=== PATIENT | female | born 1975 | race Caucasian/White ===

== ENCOUNTER 2016-08-05 12:14 | Emergency (ER) | payer BC, OTHER ==
[~2016-08-05] VITALS: Ht 157.5 cm; Wt 90.5 kg
[~2016-08-05 12:14] MED LIST: ALBUAER3 INH; ALPR.5 PO; LEVA500T PO; PRED20 PO; RISP4TAB41 PO; TRAM50TA PO
[2016-08-05 12:19] VITALS: BP 134/76; PULSE 116; RESP 17; TEMP 98; O2SAT 90
[2016-08-05] MEDS ORDERED: PRED50 PO (13:42)
[2016-08-05] MEDS ORDERED: BENZ100 PO (13:42)
[2016-08-05] MEDS ORDERED: ALBUAER3 INH (13:42)
[2016-08-05] MEDS ORDERED: LEVA500T PO (13:42)
--- NOTE | 2016-08-05 13:43 | PD ---
HPI Chief Complaint: Cold / Flu Symptoms Time Seen by Provider: 13:36 Travel History International Travel<30 days: No Contact w/Intl Traveler<30days: No Traveled to known affect area: No History of Present Illness HPI 40 yr old female with asthma, bipolar disorder, depressioon and tobaccoism here with c/o coughing and shortness of breath for 4 days. Patient says her entire family is sick and she is not getting better. She had PNA back in Nov and states her symptoms resolved. She never had f/u CXR as instructed to do. Today she is having increased bouts of coughing and has shortness of breath on exertion. She has a nebulizer machine at home, but has not been using it. She has not smoked for the past several days. She does admit to fever and chills, but states she does not have them at this moment. She voices concern that she may be . Denies any cp, nausea, vomiting, or abdominal pain. PFSH Past Medical History Asthma: Yes Bipolar Disorder: Yes Anxiety: Yes Diminished Hearing: No Reproductive: Yes (RIGHT OVARIAN CYST) Respiratory: Yes (SEWLYN ALLERGBEULAH ASTHMA) Immunizations Current: Yes ?: Not : 1 Para: 1 Social History Alcohol Use: Yes (FEW TIMES PER MONTH) Tobacco Use: Yes (1 PPD) Substance Use: No Allergies-Medications (Allergen,Severity, Reaction): Coded Allergies: Contrast Media (Verified Allergy, Unknown, ANAPHYLAXIS, 08/05/16) Reported Meds & Prescriptions Reported Meds & Active Scripts Active Proair Hfa 8.5 GM Inh (Albuterol Sulfate) 90 Mcg/Act Aer 2 Puff INH Q6H PRN 108 mcg/actuation Tessalon Perles (Benzonatate) 100 Mg Cap 100 Mg PO TID PRN Prednisone 50 Mg Tab 50 Mg PO DAILY Levaquin (Levofloxacin) 500 Mg Tab 500 Mg PO DAILY Prednisone 20 Mg Tab 40 Mg PO DAILY 4 Days Levaquin (Levofloxacin) 500 Mg Tab 500 Mg PO DAILY 7 Days Reported Tramadol (Tramadol HCl) 50 Mg Tab 50 Mg PO DAILY PRN Risperdal (Risperidone) 4 Mg Tab 6 Mg PO DAILY Proair Hfa 8.5 GM Inh (Albuterol Sulfate) 90 Mcg/Act Aer 1 Puff INH Q4H PRN 108 mcg/actuation Xanax (Alprazolam) 0.5 Mg Tab 0.5 Mg PO BID PRN Review of Systems General / Constitutional: Positive: Fever, Chills Eyes: No: Visual changes HENT: No: Headaches Cardiovascular: No: Chest Pain or Discomfort Respiratory: Positive: Cough, Shortness of Breath, Wheezing Gastrointestinal: No: Abdominal Pain Genitourinary: No: Dysuria Musculoskeletal: No: Pain Skin: No Rash Neurologic: No: Weakness Psychiatric: No: Depression Endocrine: No: Polydipsia Hematologic/Lymphatic: No: Easy Bruising Physical Exam Narrative GENERAL: AAO x 3, no acute distress, Well-nourished, well-developed patient. In hospital bed comfortable. SKIN: Warm and dry. No visible rashes or bruising. HEAD: Normocephalic and atraumatic. EYES: No scleral icterus. No injection or drainage. EOM intact, PERRLA ENT: No nasal drainage noted. Mucous membranes pink. Airway patent. NO posterior pharynx erythema. No exudates. NECK: Supple, trachea midline. No JVD. NO lymphadenopathy. CARDIOVASCULAR: Regular rate and rhythm without murmurs, gallops, or rubs. RESPIRATORY: Breath sounds equal bilaterally. No accessory muscle use. Slightly wheezes scattered, no rhonchi or rales. GASTROINTESTINAL: Abdomen soft, non-tender, nondistended. EXTREMITIES: No cyanosis or edema. BACK: Nontender without obvious deformity. No CVA tenderness. PSYCH: AAO x 3, normal affect. Data Data Last Documented VS Vital Signs Date Time Temp Pulse Resp B/P Pulse Ox O2 Delivery O2 Flow Rate FiO2 08/05/16 15:11 94 18 98 08/05/16 12:19 98.0 134/76 Orders Chest, Pa & Lat (08/05/16 ) Ed Urine Pregnancytest Poc (08/05/16 13:40) Albuterol-Ipratropium Neb (Duoneb Neb) (08/05/16 14:45) Prednisone (Deltasone) (08/05/16 14:45) MDM Medical Decision Making Medical Screen Exam Complete: Yes Emergency Medical Condition: Yes Medical Record Reviewed: Yes Interpretation(s) improvement from last cxr no consolidation seen Differential Diagnosis PNA, bronchitis, acute sinusitis Narrative Course 40 yr old female with asthma, bipolar disorder, depressioon and tobaccoism here with c/o coughing and shortness of breath for 4 days. Patient says her entire family is sick and she is not getting better. She had PNA back in Apr and states her symptoms resolved. She never had f/u CXR as instructed to do. Today she is having increased bouts of coughing and has shortness of breath on exertion. She has a nebulizer machine at home, but has not been using it. She has not smoked for the past several days. She does admit to fever and chills, but states she does not have them at this moment. She voices concern that she may be . Denies any cp, nausea, vomiting, or abdominal pain. Patient seen and examined. She does have some wheezing and diminished breath sounds. With hx of PNA, repeat CXR ordered. CXR no acute disease. Upon walking patient developed some SOB and was given Duoneb. She requested a dose of steroids, which was administered. Take medications as prescribed. Levaquin 500 daily for 7 days. Prednisone 50 mg daily x 5 days. Tessalon perles as directed. Proair inhaler as directed. Diagnosis Primary Impression: Acute bronchitis Qualified Code: J20.9 - Acute bronchitis, unspecified organism Patient Instructions: Acute Bronchitis (ED), General Instructions Additional Instructions: Take medications as prescribed. Levaquin 500 daily for 7 days. Prednisone 50 mg daily x 5 days. Tessalon perles as directed. Proair inhaler as directed. Med/Other Pt SpecificInfo: Prescription(s) given Scripts Albuterol 8.5 GM Inh (Proair Hfa 8.5 GM Inh)90 Mcg/Act Aer2 Puff INH Q6H PRN ( SHORTNESS OF BREATH) #1 INHALER Ref 0 108 mcg/actuation Prov:Ruth Thomas 08/05/16 Benzonatate (Tessalon Perles)100 Mg [id number] Mg PO TID PRN (COUGH) #30 CAP Ref 0 Prov:Ruth Thomas 08/05/16 Prednisone 50 Mg Tab50 Mg PO DAILY #5 TAB Ref 0 Prov:Ruth Thomas 08/05/16 Levofloxacin (Levaquin)500 Mg [id number] Mg PO DAILY #7 TAB Ref 0 Prov:Ruth Thomas 08/05/16 Disposition: 01 DISCHARGE HOME Condition: Stable Ruth Thomas Aug 05, 2016 13:43
[2016-08-05] MEDS ORDERED: predniSONE 20 MG TAB PO ONE (14:45)
[2016-08-05] MEDS ORDERED: RESP: ALBUTEROL 2.5 MG/IPRATROPIUM 0.5 MG NEB (SCH) INH ONE (14:45)
--- NOTE | 2016-08-05 15:33 | RADRPT ---
EXAM DATE/TIME: 08/05/2016 14:12 [facility] COMPARISON: CHEST PA & LAT, May 22, 2016, 15:04. INDICATIONS : Congestion,shortness of breath,cough,chest pain. MEDICAL HISTORY : hx. of bronchitis SURGICAL HISTORY : None. ENCOUNTER: Initial ACUITY: 4 - 6 days PAIN SCORE: 0/10 LOCATION: Bilateral chest middle FINDINGS: PA and lateral views of the chest demonstrate the lungs to be symmetrically aerated without evidence of mass, infiltrate or effusion. The cardiomediastinal contours are unremarkable. Osseous structure s are intact. CONCLUSION: No acute disease. Tello Theodore MD FACR on August 05, 2016 at 14:31 Board Certified Radiologist. This report was verified electronically.
== END 2016-08-05 15:21 | disposition home or self-care (01) ==
LOC: NEPB 12:14
DX: J20.9 Acute bronchitis, unspecified (principal); J45.909 Unspecified asthma, uncomplicated; R05 Cough; F17.210 Nicotine dependence, cigarettes, uncomplicated
CPT/HCPCS: 71020; 84703; 94664; 99284; J7512

== ENCOUNTER 2017-01-12 14:14 | Emergency (ER) | payer SELFPAY ==
[~2017-01-12 14:14] MED LIST changes: +BENZ100 PO; +PRED50 PO
[2017-01-12 14:15] VITALS: BP 114/69; TEMP 98.2; O2SAT 97
--- NOTE | 2017-01-12 14:22 | PD ---
Physical Exam Time Seen by Provider: 14:21 Narrative 41 y/o female with dizziness/lightheadness, worse with orthostatic changes, for one week. Vital signs reviewed. Seen at triage desk. Awaiting bed placement. Data Data Last Documented VS Vital Signs Date Time Temp Pulse Resp B/P Pulse Ox O2 Delivery O2 Flow Rate FiO2 01/12/17 14:15 98.2 104 20 114/69 97 Room Air [facility] Medical Record Reviewed: Yes Supervised Visit with MARKIE: Richie Wood Jan 12, 2017 14:22
--- NOTE | 2017-01-12 15:19 | PD ---
HPI Chief Complaint: Dizziness Time Seen by Provider: 15:19 Travel History International Travel<30 days: No Contact w/Intl Traveler<30days: No Traveled to known affect area: No [facility] Past Medical History Asthma: Yes Bipolar Disorder: Yes Anxiety: Yes Diminished Hearing: No Reproductive: Yes (RIGHT OVARIAN CYST) Respiratory: Yes (SESONAL ALLERGIE ASTHMA) Immunizations Current: Yes : 1 Para: 1 Social History Alcohol Use: Yes (FEW TIMES PER MONTH) Tobacco Use: Yes (1 PPD) Substance Use: No Allergies-Medications (Allergen,Severity, Reaction): Coded Allergies: Contrast Media (Verified Allergy, Unknown, ANAPHYLAXIS, 08/05/16) Reported Meds & Prescriptions Reported Meds & Active Scripts Active Meclizine (Meclizine HCl) 25 Mg Tab 25 Mg PO TID PRN Proair Hfa 8.5 GM Inh (Albuterol Sulfate) 90 Mcg/Act Aer 2 Puff INH Q6H PRN 108 mcg/actuation Tessalon Perles (Benzonatate) 100 Mg Cap 100 Mg PO TID PRN Prednisone 50 Mg Tab 50 Mg PO DAILY Levaquin (Levofloxacin) 500 Mg Tab 500 Mg PO DAILY Prednisone 20 Mg Tab 40 Mg PO DAILY 4 Days Levaquin (Levofloxacin) 500 Mg Tab 500 Mg PO DAILY 7 Days Reported Tramadol (Tramadol HCl) 50 Mg Tab 50 Mg PO DAILY PRN Risperdal (Risperidone) 4 Mg Tab 6 Mg PO DAILY Proair Hfa 8.5 GM Inh (Albuterol Sulfate) 90 Mcg/Act Aer 1 Puff INH Q4H PRN 108 mcg/actuation Xanax (Alprazolam) 0.5 Mg Tab 0.5 Mg PO BID PRN Data Data Last Documented VS Vital Signs Date Time Temp Pulse Resp B/P Pulse Ox O2 Delivery O2 Flow Rate FiO2 01/12/17 15:46 90 110/67 95 117/74 103 118/74 01/12/17 15:24 98.2 20 97 Room Air Orders Electrocardiogram (01/12/17 14:58) Ed Urine Pregnancytest Poc (01/12/17 14:58) Meclizine (Antivert) (01/12/17 16:00) MDM Scripts Meclizine 25 Mg Tab25 Mg PO TID PRN (VERTIGO) #15 TAB Ref 0 Prov:Ladarius Woody MD 01/12/17 Ladarius Woody MD Jan 12, 2017 15:19
[2017-01-12 15:24] VITALS: BP 114/69; PULSE 104; RESP 20; TEMP 98.2; O2SAT 97
[2017-01-12 15:46] VITALS: BP_SYST 110; BP_SYST 117; BP_SYST 118; BP_DIAS 67; BP_DIAS 74
[2017-01-12] MEDS ORDERED: MECLIZINE HCL 25 MG TAB PO ONE (16:00)
[2017-01-12] MEDS ORDERED: MECL-62 PO (16:31)
--- NOTE | 2017-01-12 16:31 | PD ---
HPI Chief Complaint: Dizziness Time Seen by Provider: 15:19 Travel History International Travel<30 days: No Contact w/Intl Traveler<30days: No Traveled to known affect area: No History of Present Illness HPI 41-year-old female came to the emergency room with history of dizziness for past 1 week. Patient says that it comes and goes and is a weird flushing kind of a sensation in side her head that makes her feel like she is going to pass out but she never passes out and then it is gone. No history of nausea vomiting. She has never had this kind of symptom in the past. Patient is a smoker. She is otherwise a relatively healthy person. A urine was done prior to me going to see her and it was negative. Upon asking patient says that she has been on Xanax, Castella and Risperdal for some time now and on 01/01/2017 she ran out of her Xanax. She does not have a primary care anymore and did not get a refill on that. Her symptoms started pretty much after that. Vital signs were stable. [facility]LY [facility] Past Medical History Narrative Medical List of her past medical, surgical, social and family history is reviewed from the nursing note. Asthma: Yes Bipolar Disorder: Yes Anxiety: Yes Diminished Hearing: No Reproductive: Yes (RIGHT OVARIAN CYST) Respiratory: Yes (SEASONAL ALLERGIES) Immunizations Current: Yes ?: Not : 1 Para: 1 Past Surgical History Surgical History: No Previous Surgery Social History Alcohol Use: Yes (FEW TIMES PER MONTH) Tobacco Use: Yes (1 PPD) Substance Use: No Allergies-Medications (Allergen,Severity, Reaction): Coded Allergies: Contrast Media (Verified Allergy, Unknown, ANAPHYLAXIS, 08/05/16) Comments List of her allergies reviewed from the nursing note. Reported Meds & Prescriptions Reported Meds & Active Scripts Active Meclizine (Meclizine HCl) 25 Mg Tab 25 Mg PO TID PRN Proair Hfa 8.5 GM Inh (Albuterol Sulfate) 90 Mcg/Act Aer 2 Puff INH Q6H PRN 108 mcg/actuation Tessalon Perles (Benzonatate) 100 Mg Cap 100 Mg PO TID PRN Prednisone 50 Mg Tab 50 Mg PO DAILY Levaquin (Levofloxacin) 500 Mg Tab 500 Mg PO DAILY Prednisone 20 Mg Tab 40 Mg PO DAILY 4 Days Levaquin (Levofloxacin) 500 Mg Tab 500 Mg PO DAILY 7 Days Reported Tramadol (Tramadol HCl) 50 Mg Tab 50 Mg PO DAILY PRN Risperdal (Risperidone) 4 Mg Tab 6 Mg PO DAILY Proair Hfa 8.5 GM Inh (Albuterol Sulfate) 90 Mcg/Act Aer 1 Puff INH Q4H PRN 108 mcg/actuation Xanax (Alprazolam) 0.5 Mg Tab 0.5 Mg PO BID PRN Narrative Medication List of her home medications reviewed from the nursing note. Review of Systems Except as stated in HPI: all other systems reviewed are Neg Physical Exam Narrative GENERAL: Awake, alert, obese, anxious SKIN: Focused skin assessment warm/dry. HEAD: Atraumatic. Normocephalic. EYES: Pupils equal and round. No scleral icterus. No injection or drainage. ENT: No nasal bleeding or discharge. Mucous membranes pink and moist. NECK: Trachea midline. No JVD. CARDIOVASCULAR: Regular rate and rhythm. No murmur appreciated. RESPIRATORY: No accessory muscle use. Clear to auscultation. Breath sounds equal bilaterally. GASTROINTESTINAL: Abdomen soft, non-tender, nondistended. Hepatic and splenic margins not palpable. MUSCULOSKELETAL: No obvious deformities. No clubbing. No cyanosis. No edema. NEUROLOGICAL: Awake and alert. No obvious cranial nerve deficits. Motor grossly within normal limits. Normal speech. [id number] test was normal bilaterally PSYCHIATRIC: Appropriate mood and affect; insight and judgment normal. Data Data Last Documented VS Vital Signs Date Time Temp Pulse Resp B/P Pulse Ox O2 Delivery O2 Flow Rate FiO2 01/12/17 15:46 90 110/67 95 117/74 103 118/74 01/12/17 15:24 98.2 20 97 Room Air Orders Electrocardiogram (01/12/17 14:58) Ed Urine Pregnancytest Poc (01/12/17 14:58) Meclizine (Antivert) (01/12/17 16:00) [facility] Medical Decision Making Medical Screen Exam Complete: Yes Emergency Medical Condition: Yes Medical Record Reviewed: Yes Interpretation(s) Twelve-lead EKG was reviewed by me. Normal sinus rhythm, normal axis, nonspecific ST-T wave changes. Heart rate of 82 bpm. Differential Diagnosis Xanax withdrawal, BPV Narrative Course 4:29 PM the symptoms coincide perfectly with her stopping the Xanax. In my opinion this is a Xanax withdrawal. I however gave her some meclizine and I'll discharge her home on meclizine as well. We discussed about CAT scan and patient didn't want to get a CAT scan and I'm comfortable with that. Patient will be discharged home. Procedures EKG Prior to Arrival: No Diagnosis Primary Impression: Dizziness Additional Impression: Xanax withdrawal Referrals: Primary Care Physician Additional Instructions: Please return to the ER if the condition worsens or any other new concerns. Otherwise follow-up with her primary care in couple days. You should not be driving car or operating heavy machinery or swimming until the symptoms are completely gone or you get a clearance from your primary care. Take the medication as per the prescription direction. Med/Other Pt SpecificInfo: Prescription(s) given Scripts Meclizine 25 Mg Tab25 Mg PO TID PRN (VERTIGO) #15 TAB Ref 0 Prov:Ladarius Woody MD 01/12/17 Disposition: 01 DISCHARGE HOME Condition: Stable Ladarius Woody MD Jan 12, 2017 16:31
--- NOTE | 2017-01-13 14:53 | EKG ---
Date Performed: 01/12/2017 Time Performed: 15:58:21 PTAGE: 41 years EKG: Sinus rhythm NORMAL ECG NO PREVIOUS TRACING DOCTOR: Jason Acuña Interpretating Date/Time 01/13/2017 14:50:51
== END 2017-01-12 16:49 | disposition home or self-care (01) ==
LOC: NEPD 14:14
DX: R42 Dizziness and giddiness (principal); F13.239 Sedative, hypnotic or anxiolytic dependence with withdrawal, unspecified
CPT/HCPCS: 84703; 93005

== ENCOUNTER 2017-01-27 13:37 | Emergency (ER) | payer BC ==
[~2017-01-27] VITALS: Ht 157.5 cm; Wt 90.0 kg
[~2017-01-27 13:37] MED LIST changes: +MECL-62 PO
[2017-01-27 13:39] VITALS: BP 120/77; PULSE 116; RESP 16; TEMP 98.4; O2SAT 98
[2017-01-27] MEDS ORDERED: NORC5TAB PO (13:55)
[2017-01-27 14:04] VITALS: BP 127/82; PULSE 106; RESP 20; O2SAT 96
--- NOTE | 2017-01-27 14:08 | PD ---
HPI Chief Complaint: Medical Clearance Time Seen by Provider: 14:08 Travel History International Travel<30 days: No Contact w/Intl Traveler<30days: No Traveled to known affect area: No History of Present Illness HPI 41-year-old female presents to the emergency Department with multiple complaints. Complaint of continued dizziness and extreme fatigue for the last month. She is also complaining of right neck pain that she takes [place] , which presides relief. Denies neck injury. Also complaining of a sore throat for the last couple days. Denies lump in throat, difficulty swallowing, unusual drooling. Denies nasal congestion, cough. Denies fever, vomiting. Denies chest pain. Has history of asthma and is complaining also of shortness of breath that is relieved with her albuterol inhaler, but says that her breathing just hasn't been normal. Reports history of pneumonia back in May. Denies wheezing. Reports tobacco use daily. States she does need a refill on her albuterol inhaler. Denies change in urine or stool. Denies dysuria. Denies abdominal pain. Last menstrual period was a couple weeks ago and she denies risk of . Has history of anxiety and was taking Xanax until December 29. Says she was seen here about 3 weeks ago with complaint of dizziness and was told she was having withdrawal from her Xanax and was given meclizine which has provided her no relief of dizziness. Dr. Becker is her primary care provider. She has allergies to contrast dye. She has no other medical complaints. No other modifying factors or associated signs and symptoms. PFSH Past Medical History Asthma: Yes Bipolar Disorder: Yes Anxiety: Yes Diminished Hearing: No Musculoskeletal: Yes (disc problem in neck ) Reproductive: Yes (RIGHT OVARIAN CYST) Respiratory: Yes (SEASONAL ALLERGIES) Immunizations Current: Yes ?: Not LMP: 01/09 : 1 Para: 1 Social History Alcohol Use: Yes (FEW TIMES PER MONTH) Tobacco Use: Yes (1 PPD) Substance Use: No Allergies-Medications (Allergen,Severity, Reaction): Coded Allergies: Contrast Media (Verified Allergy, Unknown, ANAPHYLAXIS, 08/05/16) Reported Meds & Prescriptions Reported Meds & Active Scripts Active Proair Hfa 8.5 GM Inh (Albuterol Sulfate) 90 Mcg/Act Aer 2 Puff INH Q4-6H PRN 108 mcg/actuation Meclizine (Meclizine HCl) 25 Mg Tab 25 Mg PO TID PRN Proair Hfa 8.5 GM Inh (Albuterol Sulfate) 90 Mcg/Act Aer 2 Puff INH Q6H PRN 108 mcg/actuation Reported [place] (Hydrocodone-Acetaminophen) 5-325 mg Tab 1-2 Tab PO Q6H PRN Risperdal (Risperidone) 4 Mg Tab 6 Mg PO DAILY Xanax (Alprazolam) 0.5 Mg Tab 0.25 Mg PO BID PRN Review of Systems Except as stated in HPI: all other systems reviewed are Neg Physical Exam Narrative GENERAL: Well-nourished, well-developed patient, in no acute distress; afebrile , nontoxic-appearing SKIN: Warm and dry. No rash. HEAD: Atraumatic. Normocephalic. EYES: Pupils equal and round at 3 mm with brisk reaction. No scleral icterus. No injection or drainage. PERRLA. ENT: Mucosa pink and dry. Pharynx with minimal erythema; without exudate and edema. Uvular edema. No uvular, palatal, or tonsillar deviation. Airway patent. EARS: Bilateral pinnae and external canals appear within normal limits. Bilateral tympanic membranes without erythema, dullness or perforation.. NECK: Trachea midline. No Anterior cervical lymphadenopathy and tenderness. Moving freely. Reproducible tenderness to the right lateral musculature of the neck. Active rotation greater than 45 to the left and right. CARDIOVASCULAR: Regular rate and rhythm. No murmur appreciated. RESPIRATORY: No accessory muscle use. Clear to auscultation. Breath sounds equal bilaterally. GASTROINTESTINAL: Abdomen soft, non-tender, nondistended. Hepatic and splenic margins not palpable. Bowel sounds are active 4 quadrants. MUSCULOSKELETAL: No obvious deformities. No clubbing. No cyanosis. No edema. NEUROLOGICAL: Awake and alert. Oriented 3. No obvious cranial nerve deficits. Motor grossly within normal limits. Normal speech. Moves all extremities. PSYCHIATRIC: Appropriate mood and affect; insight and judgment normal. Data Data Last Documented VS Vital Signs Date Time Temp Pulse Resp B/P Pulse Ox O2 Delivery O2 Flow Rate FiO2 01/27/17 14:04 106 20 127/82 96 Room Air 01/27/17 13:39 98.4 Orders Basic Metabolic Panel (Bmp) (01/27/17 14:09) Complete Blood Count With Diff (01/27/17 14:09) Iv Access Insert/Monitor (01/27/17 14:09) Sodium Chlor 0.9% 1000 Ml Inj (Ns 1000 M (01/27/17 14:09) Sodium Chloride 0.9% Flush (Ns Flush) (01/27/17 14:15) Group A Rapid Strep Screen (01/27/17 14:09) Chest, Single Ap (01/27/17 14:09) Strep Culture (Group A) (01/27/17 14:30) Labs Laboratory Tests Test 01/27/17 14:30 White Blood Count 14.4 TH/MM3 Red Blood Count 4.38 MIL/MM3 Hemoglobin 13.7 GM/DL Hematocrit 40.1 % Mean Corpuscular Volume 91.7 FL Mean Corpuscular Hemoglobin 31.2 PG Mean Corpuscular Hemoglobin 34.0 % Concent Red Cell Distribution Width 13.7 % Platelet Count 342 TH/MM3 Mean Platelet Volume 7.6 FL Neutrophils (%) (Auto) 64.9 % Lymphocytes (%) (Auto) 23.2 % Monocytes (%) (Auto) 7.8 % Eosinophils (%) (Auto) 3.4 % Basophils (%) (Auto) 0.7 % Neutrophils # (Auto) 9.3 TH/MM3 Lymphocytes # (Auto) 3.3 TH/MM3 Monocytes # (Auto) 1.1 TH/MM3 Eosinophils # (Auto) 0.5 TH/MM3 Basophils # (Auto) 0.1 TH/MM3 CBC Comment DIFF FINAL Differential Comment Sodium Level 139 MEQ/L Potassium Level 3.7 MEQ/L Chloride Level 107 MEQ/L Carbon Dioxide Level 23.4 MEQ/L Anion Gap 9 MEQ/L Blood Urea Nitrogen 13 MG/DL Creatinine 0.78 MG/DL Estimat Glomerular Filtration 81 ML/MIN Rate Random Glucose 120 MG/DL Calcium Level 8.5 MG/DL MDM Medical Decision Making Medical Screen Exam Complete: Yes Emergency Medical Condition: Yes Medical Record Reviewed: Yes Differential Diagnosis Anemia, electrolyte imbalance, viral pharyngitis, strep pharyngitis, muscle spasm of neck, chronic neck pain Narrative Course 41-year-old female with multiple complaints of dizziness, extreme fatigue, right neck pain, sore throat, and shortness of breath. The symptoms have been recurring times one month. Patient is afebrile and nontoxic-appearing. She has history of asthma and shortness of breath is relieved with albuterol inhaler. She is in no acute distress and lung sounds are clear and equal throughout. With history of pneumonia and current complaint of shortness of breath I will obtain a chest x-ray. I spoke with Dr. Escamilla, my attending physician, and he agrees CBC, BMP, rapid strep and administer IV fluids. Orders entered. 1512: Chest x-ray concludes Minimal thickening right middle lobe fissure. Mild leukocytosis 14.4. Rapid strep negative. 1530: BMP unremarkable. Patient requesting refill on inhaler. Pro-air inhaler prescribed for home. Patient provided information sheet for [facility]. Instructed patient to follow up with primary care provider. Patient verbalizes understanding and agreement with treatment plan. Patient is medically cleared and stable for discharge. Discussed reasons to return to the emergency department. Patient agrees with treatment plan. The patients vital signs are stable and the patient is stable for outpatient follow-up and treatment. Patient discharged home, stable and in no acute distress. Diagnosis Primary Impression: Dizziness Additional Impressions: Fatigue Qualified Code: R53.83 - Fatigue, unspecified type Sore throat (viral) Neck pain on right side Referrals: [facility] Primary Care Physician Patient Instructions: Dizziness (ED), Fatigue (ED), General Instructions, Neck Pain (ED), Pharyngitis (ED) Departure Forms: Tests/Procedures, Work Release Enter return to work date: Jan 28, 2017 Additional Instructions: Continue [place] as prescribed for neck pain Albuterol inhaler as prescribed and as needed for shortness of breath/wheezing Throat lozenges as needed for throat pain Follow-up with primary care provider Return to the emergency department immediately with worsening of symptoms Med/Other Pt SpecificInfo: Prescription(s) given Scripts Albuterol 8.5 GM Inh (Proair Hfa 8.5 GM Inh)90 Mcg/Act Aer2 Puff INH Q4-6H PRN ( SOB/WHEEZING) #1 INHALER Ref 0 108 mcg/actuation Prov:Tiffani Santa 01/27/17 Disposition: 01 DISCHARGE HOME Condition: Stable Tiffani Santa Jan 27, 2017 14:08
[2017-01-27] MEDS ORDERED: SODIUM CHLOR 0.9% 1000 ML INJ 1,000 ML IV SCH (14:09)
[2017-01-27] MEDS ORDERED: SODIUM CHLORIDE 0.9% FLUSH 10 ML FLUSH IV FLUSH PRN (14:15)
[2017-01-27 15:03] LABS: AUTOMATED NEUTROPHIL # 9.3 TH/MM3 (1.8-7.7); BASOPHIL # 0.1 TH/MM3 (0-0.2); BASOPHIL % 0.7 % (0.0-2.0); EOSINOPHIL # 0.5 TH/MM3 (0-0.4); EOSINOPHIL % 3.4 % (0.0-4.0); HEMATOCRIT 40.1 % (35.0-46.0); HEMO FLAGS DIFF FINAL; LYMPH % 23.2 % (9.0-44.0); LYMPHOCYTE # 3.3 TH/MM3 (1.0-4.8); MEAN CELL VOLUME 91.7 FL (80.0-100.0); MEAN CORPUSCULAR HEMOGLOBIN 31.2 PG (27.0-34.0); MONO % 7.8 % (0.0-8.0); NEUT % 64.9 % (16.0-70.0); PLATELET COUNT 342 TH/MM3 (150-450); RED BLOOD COUNT 4.38 MIL/MM3 (4.00-5.30); RED CELL DISTRIBUTION WIDTH 13.7 % (11.6-17.2); WHITE BLOOD COUNT 14.4 TH/MM3 (4.0-11.0)
--- NOTE | 2017-01-27 15:08 | RADRPT ---
EXAM DATE/TIME: 01/27/2017 14:35 [facility] COMPARISON: CHEST SINGLE AP, April 21, 2016, 12:38. INDICATIONS : Shortness of breath and fatigue. MEDICAL HISTORY : None. SURGICAL HISTORY : None. ENCOUNTER: Initial ACUITY: 4 - 6 months PAIN SCORE: 0/10 LOCATION: Bilateral chest FINDINGS: There is minimal pleural thickening right middle lobe fissure lungs otherwise clear. The heart and pu lmonary vascularity are normal. The portion of the bony skeleton visualized is unremarkable. CONCLUSION: Minimal thickening right middle lobe fissure Tello Theodore MD FACR on January 27, 2017 at 15:06 Board Certified Radiologist. This report was verified electronically.
[2017-01-27] MEDS ORDERED: ALBUAER3 INH (15:21)
[2017-01-27 15:23] LABS: BICARBONATE 23.4 MEQ/L (21.0-32.0); POTASSIUM 3.7 MEQ/L (3.5-5.1)
== END 2017-01-27 18:19 | disposition home or self-care (01) ==
LOC: NEPD 13:37
DX: R42 Dizziness and giddiness (principal); R53.83 Other fatigue; M54.2 Cervicalgia; J02.9 Acute pharyngitis, unspecified; F17.210 Nicotine dependence, cigarettes, uncomplicated
CPT/HCPCS: 71010; 80048; 85025; 87081; 87880; 96360; 96361; 99284; J7030

== ENCOUNTER 2017-04-10 11:09 | Emergency (ER) | payer SELFPAY ==
[~2017-04-10] VITALS: Ht 157.5 cm; Wt 95.0 kg
[~2017-04-10 11:09] MED LIST changes: -BENZ100 PO; -LEVA500T PO; +NORC5TAB PO; -PRED20 PO; -PRED50 PO; -TRAM50TA PO
[2017-04-10 11:11] VITALS: BP 125/78; PULSE 101; RESP 16; TEMP 97.4; O2SAT 94
[2017-04-10] MEDS ORDERED: KETOROLAC TROMETHAMINE 60 MG/2 ML (IM) VIAL IM ONE (12:00)
[2017-04-10] MEDS ORDERED: ORPHENADRINE INJ 60 MG/2 ML AMP IM ONE (12:00)
--- NOTE | 2017-04-10 12:01 | PD ---
HPI Chief Complaint: Pain: Acute or Chronic Time Seen by Provider: 11:53 Travel History International Travel<30 days: No Contact w/Intl Traveler<30days: No Traveled to known affect area: No History of Present Illness HPI 41-year-old female presents to the emergency department for evaluation back pain. Patient states last night while lying in bed a piece of drywall from the ceiling fell on her. This struck her back. It did not hit her head. She did not lose consciousness. Patient was able to get out of bed this morning and go about her normal day but noticed the pain in her back. It is generalized. Denies any saddle paresthesia, loss of bowel or bladder, lower extremity weakness. Has had back pain in the past and this is made worse. Pain is more in her mid back. Exacerbated with deep inspiration. No other symptoms to report. PFSH Past Medical History Asthma: Yes Bipolar Disorder: Yes Anxiety: Yes Diminished Hearing: No Musculoskeletal: Yes (disc problem in neck ) Reproductive: Yes (RIGHT OVARIAN CYST) Respiratory: Yes (SEASONAL ALLERGIES) Immunizations Current: Yes ?: Unknown : 1 Para: 1 Social History Alcohol Use: Yes (FEW TIMES PER MONTH) Tobacco Use: Yes (1 PPD) Substance Use: No Allergies-Medications (Allergen,Severity, Reaction): Coded Allergies: diatrizoate meglumine (Unverified Allergy, Unknown, ANAPHYLAXIS, 02/07/17) gadobenic acid (Unverified Allergy, Unknown, ANAPHYLAXIS, 02/07/17) gadodiamide (Unverified Allergy, Unknown, ANAPHYLAXIS, 02/07/17) gadoteridol (Unverified Allergy, Unknown, ANAPHYLAXIS, 02/07/17) iodixanol (Unverified Allergy, Unknown, ANAPHYLAXIS, 02/07/17) iohexol (Unverified Allergy, Unknown, ANAPHYLAXIS, 02/07/17) Reported Meds & Prescriptions Reported Meds & Active Scripts Active Robaxin (Methocarbamol) 500 Mg Tab 500 Mg PO QID PRN Ibuprofen 600 Mg Tab 600 Mg PO Q8H PRN Proair Hfa 8.5 GM Inh (Albuterol Sulfate) 90 Mcg/Act Aer 2 Puff INH Q4-6H PRN 108 mcg/actuation Meclizine (Meclizine HCl) 25 Mg Tab 25 Mg PO TID PRN Proair Hfa 8.5 GM Inh (Albuterol Sulfate) 90 Mcg/Act Aer 2 Puff INH Q6H PRN 108 mcg/actuation Reported [place] (Hydrocodone-Acetaminophen) 5-325 mg Tab 1-2 Tab PO Q6H PRN Risperdal (Risperidone) 4 Mg Tab 6 Mg PO DAILY Xanax (Alprazolam) 0.5 Mg Tab 0.25 Mg PO BID PRN Review of Systems Except as stated in HPI: all other systems reviewed are Neg Physical Exam Narrative GENERAL: Well-nourished, well-developed male patient, ambulatory with a nonantalgic gait, no acute distress. SKIN: Focused skin assessment warm/dry. HEAD: Normocephalic. EYES: No scleral icterus. No injection or drainage. NECK: Supple, trachea midline. No JVD or lymphadenopathy. Cervical spine tenderness to palpation. No limitations range of motion of cervical spine. CARDIOVASCULAR: Elevated rate and rhythm without murmurs, gallops, or rubs. RESPIRATORY: Breath sounds equal bilaterally. No accessory muscle use. GASTROINTESTINAL: Abdomen soft, non-tender, nondistended. MUSCULOSKELETAL: No cyanosis, or edema. No Spinal tenderness. Tenderness elicited to palpation in the thoracic paraspinous musculature. 5 plus strength equal bilateral extremities. Distal pulses are palpable. Cap refill within normal limits. BACK: Nontender without obvious deformity. No CVA tenderness. Data Data Last Documented VS Vital Signs Date Time Temp Pulse Resp B/P (MAP) Pulse Ox O2 Delivery O2 Flow Rate FiO2 04/10/17 11:11 97.4 101 16 125/78 (94) 94 Orders Orders Chest, Pa & Lat (04/10/17 ) Ketorolac Inj (Toradol Inj) (04/10/17 12:00) Orphenadrine Inj (Norflex Inj) (04/10/17 12:00) Ed Discharge Order (04/10/17 12:47) MDM Medical Decision Making Medical Screen Exam Complete: Yes Emergency Medical Condition: Yes Medical Record Reviewed: Yes Differential Diagnosis Muscle strain versus discogenic pain versus pneumothorax versus fracture Narrative Course 41-year-old female presents to emergency department for evaluation of back pain following an incident with a drywall from her ceiling fell onto her back. This happened in the middle of the night. Patient has no focal deficits or weakness. I am more concerned about her elevated heart rate and oxygen saturation 94%. I will to chest x-ray to ensure no pneumothorax or rib fracture as the patient's pain is more thoracic paraspinous musculature. Patient is treated for pain. X-ray imaging is without acute bony normality. No cardiopulmonary disease. Results are discussed with the patient. She'll be discharged at this time. She agrees to return immediately with any acute worsening of symptoms. Diagnosis Primary Impression: Back pain Qualified Codes: M54.6 - Pain in thoracic spine Referrals: Primary Care Physician Patient Instructions: Back Pain (ED), General Instructions Additional Instructions: Ice and/or warm moist heat may help to alleviate symptoms Follow-up with a primary care provider Return immediately to the emergency department with any acute worsening symptoms Med/Other Pt SpecificInfo: Prescription(s) given Scripts Methocarbamol (Robaxin) 500 Mg Tab 500 MG PO QID Y for MUSCLE SPASM, #20 TAB 0 Refills Prov: Krissy Quarles 04/10/17 Ibuprofen (Ibuprofen) 600 Mg Tab 600 MG PO Q8H Y for PAIN, #30 TAB 0 Refills Prov: Krissy Quarles 04/10/17 Disposition: 01 DISCHARGE HOME Condition: Stable Krissy Quarles Apr 10, 2017 12:01
--- NOTE | 2017-04-10 12:43 | RADRPT ---
EXAM DATE/TIME: 04/10/2017 12:28 [facility] COMPARISON: CHEST PA & LAT, August 05, 2016, 14:12. INDICATIONS : Chest and upper back pain. Patients roof caved in on her. MEDICAL HISTORY : None. SURGICAL HISTORY : None. ENCOUNTER: Initial ACUITY: 2 days PAIN SCORE: 4/10 LOCATION: Bilateral chest FINDINGS: PA and lateral views of the chest demonstrate the lungs to be symmetrically aerated without evidence of mass, infiltrate or effusion. The cardiomediastinal contours are unremarkable. Osseous structure s are intact. CONCLUSION: No acute disease. Tello Theodore MD FACR on April 10, 2017 at 12:41 Board Certified Radiologist. This report was verified electronically.
[2017-04-10] MEDS ORDERED: ROBA500T PO (12:47)
[2017-04-10] MEDS ORDERED: IBUP-232 PO (12:47)
== END 2017-04-10 12:51 | disposition home or self-care (01) ==
LOC: NEPK 11:09
DX: M54.6 Pain in thoracic spine (principal); F17.200 Nicotine dependence, unspecified, uncomplicated
CPT/HCPCS: 71020; 96372; 99284; J1885; J2360